=== PATIENT | female | born 1970 | race Two or more races ===

== ENCOUNTER 2024-06-01 15:11 | Emergency (ER) | payer OTHER, SELFPAY ==
[2024-06-01 15:51] VITALS: BP 134/90; PULSE 75; RESP 18; TEMP 37.1; O2SAT 98; BMI 30.1
[2024-06-01] MEDS: DiphenhydrAMINE 25 MG CAPSULE PO (16:21)
[2024-06-01] MEDS: predniSONE 20 MG TABLET 60 MG PO (16:21)
--- NOTE | 2024-06-01 16:50 | EDNOTE_ITS ---
<Statement entered by Anne Marie Chester MD - 06/07/24 17:54> As co-signing physician, I was present and available for consult prn. I concur with the plan and care as documented by the midlevel provider. ED Allergic Reaction RME/HPI General Chief complaint: Allergic Reaction Stated complaint: Allergic reaction since 1100 today Time Seen by Provider: 06/01/24 15:43 Source: patient Arrival date/time: 06/01/24 15:11 This is a 53-year-old female who presents to the emergency department with complaints of itchiness hives to neck bilateral ears and hands. 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 Reports she continued to work however the itchiness became too severe she notified her supervisor [employer] milling prompting her to come to the ED for evaluation. Denies oral airway involvement no wheezing or shortness of breath. Mode of arrival: ambulatory Related Data Previous Rx's ?Medication ?Instructions ?Recorded diphenhydramine HCl 25 mg capsule 25 mg PO TID PRN allergy symptoms 06/01/24 (Benadryl) #20 caps Allergies Allergy/AdvReac Type Severity Reaction Status Date / Time No Known Allergies Allergy Verified 05/31/18 09:40 Review of Systems Review of Systems Systems Reviewed: All systems reviewed, normal except as documented Narrative Review of Systems: Gen: No fever, no chills, no weight loss EYES: No discharge, no visual changes, no pain HEENT: No ear pain, no congestion, no sore throat PULM: No shortness of breath, no cough, no congestion CV: No chest pain, no dyspnea on exertion, no palpitations GI: No nausea, no vomiting, no diarrhea, no pain, no constipation : No frequency, no urgency,? no dysuria Musc/skel: No joint pain, no back pain Skin: ++rash, hives? ED Exam Narrative Physical exam: General: Sittiing in Exam table in no acute distress, answering questions appropriately HENT: normocephalic, atraumatic, EOMI, PERRLA, moist mucous membranes Chest: chest wall is nontender Cardiac: regular rate and rhythm, normal S1 and S2, no murmurs, rubs, or gallops, capillary refill ?2 seconds Pulmonary: clear to auscultation bilaterally, no wheezing, crackles, or rhonchi Abdominal: active bowel sounds, soft, nontender, nondistended Neuro: A&OX3, CN II-XII intact, sensation grossly intact bilaterally in UE and LE. Skin: + rashes anterior chest hives to bilateral ears., no ecchymosis Ext: no lower extremity edema Course Quality Measures none Orders Category Date Time Status DiphenhydrAMINE [Benadryl] Med 06/01/24 16:13 Discontinued 25 mg PO X1 ONE predniSONE Med 06/01/24 16:13 Discontinued 60 mg PO X1 ONE Vital Signs Vital signs: Vital Signs Temperature 98.8 F 06/01/24 15:51 Pulse Rate 75 06/01/24 15:51 Respiratory Rate 18 06/01/24 15:51 Blood Pressure 134/90 H 06/01/24 15:51 Pulse Oximetry (%) 98 06/01/24 15:51 Oxygen Delivery Method Room Air 06/01/24 15:51 Allergic Reaction MDM Narrative MDM Narrative:: 53-year-old female evaluated for [place] area hives rash patient was given Benadryl and prednisone symptoms have improved. Will discharge patient home with close follow up with PMD. Patient instructed to come back to ER if any worsening symptoms. Patient data External records reviewed:: [facility] previous records Clinical information provided by:: patient Social determinants that could affect healthcare access:: none Patient has the following chronic illnesses:: No How is presenting disease/condition affected by chronic disease/condition?: no chronic disease Evaluation data The following diagnostics were reviewed and interpreted by me:: other (specify) Lab and/or radiology exams considered but not ordered:: No Interpretation Summary: No Medications / Prescriptions Medications or Prescriptions considered but not ordered:: No Medication administrations:: Medication Administration History Discontinued Medications Diphenhydramine HCl (Diphenhydramine 25 Mg Capsule) 25 mg PO X1 ONE Stop: 06/01/24 16:14 Last Admin: 06/01/24 16:21 Dose: 25 mg Documented By: Prednisone (Prednisone 20 Mg Tablet) 60 mg PO X1 ONE Stop: 06/01/24 16:14 Last Admin: 06/01/24 16:21 Dose: 60 mg Documented By: All medications administered and effective Consultations Consultation(s) initiated? (list below): No Diagnosis Differential Diagnosis allergic reaction: anaphylaxis, allergic reaction, angioedema, contact dermatitis, viral enanthem and urticaria Most likely diagnosis given after review of the tests above:: Allergic reaction Admission Indicated Admission indicated?: not indicated Explain why admission is indicated or not indicated:: none Admission Request Was there a request for admission?: No Disposition Plan Disposition Plan: Discharge Discharge Attestation Discharge Attestation: The patient and all family members were given an opportunity to ask questions and understood the discharge instructions. Discharge instructions specifically effects, indications for sooner follow up or return to the emergency department, and the expected course of current diagnosis. Patient condition: Stable Discharge Plan Plan Patient Disposition: HOME (Self Care) Patient condition on transfer: Stable Prescriptions/Referrals Prescriptions/Med Rec: New diphenhydramine HCl [Benadryl] 25 mg capsule 25 mg PO TID PRN (Reason: allergy symptoms) Qty: 20 0RF Problem List Clinical Impression: Allergic reaction, Urticaria Patient/Caregiver Discharge Instructions Discharge Activity: as per physical therapy Education Materials: ED Medicine Reaction: Allergic Additional Instructions: Please take medication as directed. Follow-up with your primary doctor Return to the emergency department this any worsening symptoms or condition. Print Language: Dutch Stand Alone Forms: [place] Award Info., Work/School Release, Patient Portal Info Letter PA/WATER TRAINER Supervising Physician PA/WATER TRAINER Supervising Physician: Dr. Tinoco
== END 2024-06-01 18:17 | disposition home or self-care (01) ==
PROVIDERS: Emergency Provider Emergency Medicine; PCP Family Medicine
DX: L50.0 Allergic urticaria (principal)
CPT/HCPCS: 99282; J7512; A9270

== ENCOUNTER → 2024-10-19 | Outpatient (CLI) | payer OTHER, SELFPAY ==
--- NOTE | 2024-10-19 15:33 | XR_ITS ---
Examination: Lumbar spine, 5 views Technique: Lumbar spine AP, lateral, coned lateral lower lumbar spine, bilateral obliques 5 views Exam date and time: October 19, 2024 1534 hours Comparison October 27, 2023 INDICATIONS: Low back pain beginning 8 months ago. FINDINGS: No lumbar fracture [id number] diffuse lumbar disc narrowing, most prominent at L3-L4 Grade 1 anterolisthesis L3 on L4 No spondylolisthesis IMPRESSION: Diffuse mild to moderate lumbar degenerative disc disease, most prominent at L3-L4
== END | disposition home or self-care (01) ==
LOC: CDIM 15:29
PROVIDERS: PCP Family Medicine; Referring Provider Chiropractor; Visit Provider Chiropractor
DX: M51.360 Other intervertebral disc degeneration, lumbar region with discogenic back pain only (principal)
CPT/HCPCS: 72110